=== PATIENT | female | born 1980 | race Caucasian/White ===

== ENCOUNTER 2017-04-05 18:29 | Emergency (ER) | payer OTHER ==
[~2017-04-05 18:29] MED LIST: ALBUTEROL17 GM INH; CHOLESTEROL MED; CIPRO PO; COLESTID1 GM; DICLOFENAC PO; DIFLUCAN PO; EC-NAPROSYN500 MG PO; EMVERM100 MG PO; FIORICET1 TAB PO; HYDROCODON-ACE1 EAC1 PO; HYDROCODONE-APA1 T56 PO; LIDOCAINE VISCOU1 ML TOP; LORTAB 5-325 M1 EACH PO; NAPROXEN PO; PRILOSEC20 M1 PO; QNASL8.7 GM; SINGULAIR PO; VALTREX500 MG PO; VICODIN 5/1 TAB 5/50 PO; ZANTAC150 M1; ZOFRAN ODT4 MG SL; ZOFRAN PO; ZOMIG2.5 MG PO; ZOMIG5 MG PO; ZYRTEC10 M4 PO
[2017-04-05] MEDS ORDERED: MUSCLE RELAXER (18:37)
[2017-04-05] MEDS ORDERED: VALTREX500 MG PO (18:38)
[2017-04-05] MEDS ORDERED: ZYRTEC10 M2 PO (18:38)
== END 2017-04-05 19:53 | disposition home or self-care (01) ==
LOC: SED 18:29
DX: M54.12 Radiculopathy, cervical region (principal); Z79.2 Long term (current) use of antibiotics; Z88.5 Allergy status to narcotic agent; Z88.8 Allergy status to other drugs, medicaments and biological substances
CPT/HCPCS: 99282

== ENCOUNTER → 2017-04-16 | Outpatient (CLI) | payer OTHER ==
[~2017-04-16] MED LIST changes: +HYDROCODON-ACE1 EAC7; +IBUPROFEN800 MG; +MUSCLE RELAXER; +ROBAXIN500 MG PO; +ZYRTEC10 M2 PO
--- NOTE | ~2017-04-16 | MR32 ---
[facility] A Service of [facility] RADIOLOGY TEXT RESULTS PATIENT: ZAK EMERY LOCATION: [facility] : [birth year] UNIT #: [id number] AGE: [address]: Jeff Prescott MD SEX: F ORDER DR: [id number] [address] [address] [id number] O MR#: [id number] Acc #: [id number] NAME: ZAK EMERY : 1980 SEX: F STUDY DATE/TIME: 04/16/2017 11:48 UNIT: [facility] ROOM: STUDY DESCRIPTION: MR Cervical Wo Contrast Attending Physician: Jeff Prescott M.D. Referring Physician: Jeff Prescott M.D. Ordering Physician: Jeff Prescott M.D. Primary Care Physician: Alanis Young M.D. MRI CENTER REPORT This report is preliminary unless electronic signature is present. EXAM Cervical MRI HISTORY Worsening neck pain with numbness and tingling in the left fingers and pain radiating to the right upper extremity for the past 2 months. TECHNIQUE Multiplanar imaging of the cervical spine was performed with short and long TR. FINDINGS Alignment is satisfactory. There is mild concentric disc bulging at C5-6. The discs at the other levels are unremarkable. The canal and foramina are widely patent throughout the cervical spine. No evidence of disc herniation. No evidence of exiting nerve root compression. The cord itself is normal in size and signal. There is no evidence of marrow edema. IMPRESSION Minimal midline disc bulging at C5-6. Otherwise negative. Dictated by... Rohan Muller M.D. THIS IS AN ELECTRONICALLY VERIFIED REPORT Rohan Muller M.D. at 04/21/2017 5:48 AM MYLENE/citlaly TD: 04/16/2017 19:44 JOB #: [id number] [facility] A Service of [facility] RADIOLOGY TEXT RESULTS PATIENT: ZAK EMERY LOCATION: [facility] : [birth year] UNIT #: [id number] AGE: [address]: Jeff Prescott MD SEX: F ORDER DR: MRI CENTER REPORT Page 1 of 1
== END | disposition home or self-care (01) ==
LOC: SMRI 11:24
DX: M54.2 Cervicalgia (principal); M54.10 Radiculopathy, site unspecified; R20.2 Paresthesia of skin; M50.822 Other cervical disc disorders at C5-C6 level
CPT/HCPCS: 72141

== ENCOUNTER 2017-05-08 19:03 | Emergency (ER) | payer OTHER ==
--- NOTE | ~2017-05-08 | EKG ---
PATIENT: ZAK EMERY UNIT #: [id number] Ventricular Rate: 58 BPM Atrial Rate: 58 BPM P-R Interval: 182 ms QRS Duration: 74 ms Q-T Interval: 400 ms QTC Calculation(Bezet): 392 ms P [place]: 53 degrees Calculated R [place]: 79 degrees Calculated T [place]: 48 degrees Diagnosis Line: Sinus bradycardia Diagnosis Line: Otherwise normal ECG Diagnosis Line: Diagnosis Line: Confirmed by RUMA HARRINGTON MD ([id number]) on Diagnosis Line: 05/14/2017 9:00:40 AM INTERPRETING MD: JUANY GARCIA
--- NOTE | ~2017-05-08 | CT71 ---
[facility] A Service [facility] RADIOLOGY TEXT RESULTS PATIENT: ZAK EMERY LOCATION: [facility] : [birth year] UNIT #: [id number] AGE: [address]: Elías Strong MD SEX: F ORDER DR: [id number] [address] [address] [id number] E MR#: [id number] Acc #: [id number] NAME: ZAK EMERY. : 1980 SEX: F STUDY DATE/TIME: 05/08/2017 22:23 UNIT: [facility] ROOM: STUDY DESCRIPTION: CT Head Wo Contrast Attending Physician: Elías Strong M.D. Ordering Physician: Elías Strong M.D. Primary Care Physician: Alanis Young M.D. MEDICAL IMAGING REPORT This report is preliminary unless electronic signature is present. EXAM CT scan head without contrast. INDICATION Dizziness and confusion for 1 week also with blurry vision. COMPARISON 04/11/2015. This CT exam was performed with one or more of the following radiation dose reduction techniques: automatic exposure control, adjustment of mA and/or kV according to patient size, and iterative reconstruction. FINDINGS Axial noncontrast images were obtained from the skull base to the vertex. Ventricular size and configuration are normal. There is no evidence of acute infarct or hemorrhage. There are no extraaxial fluid collections. No mass lesion or mass effect is seen. There are no skull fractures. IMPRESSION Normal noncontrast head CT. Dictated by... Saad Pineda M.D. THIS IS AN ELECTRONICALLY VERIFIED REPORT Saad Pineda M.D. at 05/10/2017 5:01 AM SANTOS/reginald TD: 05/09/2017 22:34 [facility] A Service [facility] RADIOLOGY TEXT RESULTS PATIENT: ZAK EMERY LOCATION: [facility] : [birth year] UNIT #: [id number] AGE: [address]: Elías Strong MD SEX: F ORDER DR: JOB #: [id number] MEDICAL IMAGING REPORT Page 1 of 1
[~2017-05-08 19:03] MED LIST changes: -HYDROCODON-ACE1 EAC7; -IBUPROFEN800 MG; -ROBAXIN500 MG PO
[2017-05-08] MEDS ORDERED: ROBAXIN500 MG PO (19:15)
[2017-05-08] MEDS ORDERED: HYDROCODON-ACE1 EAC7 (19:16)
[2017-05-08] MEDS ORDERED: IBUPROFEN800 MG (19:16)
[2017-05-08 20:03] LABS: URINE SOURCE CLEAN CATCH
[2017-05-08 20:09] LABS: URINE APPEARANCE CLEAR; URINE BILIRUBIN NEG (NEG); URINE BLOOD 1+ (NEG); URINE COLOR YELLOW; URINE GLUCOSE NEG (NORM); URINE KETONE NEG (NEG); URINE LEUKOCYTE ESTERASE TRACE (NEG); URINE NITRATE NEG (NEG); URINE PROTEIN NEG (NEG)
[2017-05-08 20:15] LABS: MICRO INDICATED? YES
[2017-05-08 20:16] LABS: CULTURE INDICATED? NO; URINE BACTERIA NEG (NEG); URINE MUCUS PRESENT; URINE SQUAMOUS EPITHELIAL CELL OCCAS /[HPF]; URINE TRANSITIONAL EPI CELLS FEW /[HPF]
[2017-05-08 21:28] LABS: BASOPHIL# 0.1 X10e3 (0-0.3); DIFF IND NO; EOSINOPHIL# 0.1 X10e3 (0-0.7); HEMATOCRIT 44.7 % (35.0-45.0); HEMOGLOBIN 15.3 gm/dL (12.0-16.0); LYMPHOCYTE# 2.2 X10e3 (1.0-3.5); LYMPHOCYTE% 32.1 % (17.0-45.0); MEAN CELL VOLUME 84.5 FL (83-96); MEAN CORPUSCULAR HEMOGLOBIN 28.9 PG (28-34); MEAN CORPUSCULAR HGB CONC 34.2 g/dL (30-36); MEAN PLATELET VOLUME 7.1 FL (6.5-11.5); MONOCYTE# 0.5 X10e3 (0-1.0); MONOCYTE% 7.8 % (3.0-12.0); NEUTROPHIL# 3.9 X10e3 (1.5-7.1); NEUTROPHIL% 57.1 % (40-75); PLATELET COUNT 237 X10e3 (140-420); RED BLOOD COUNT 5.29 X10e (3.90-5.30); RED CELL DISTRIBUTION WIDTH 13.2 % (11.0-15.5); WHITE BLOOD COUNT 6.9 X10e3 (4.0-10.5)
[2017-05-08 21:48] LABS: ALBUMIN SERUM 4.4 g/dL (3.5-5.0); BILIRUBIN, DIRECT 0.1 mg/dL (0.0-0.2); BILIRUBIN,TOTAL 1.1 mg/dL (0.2-2.0); BUN/CREATININE RATIO 28.75; CALCIUM SERUM 9.1 mg/dL (8.4-10.2); CREATININE SERUM 0.8 mg/dL (0.6-1.4); GLOM FILT RATE Estimated 94.9 mL/min (>60); POTASSIUM 3.9 mmol/L (3.5-5.1); PROTEIN TOTAL SERUM 7.3 g/dL (6.0-8.3)
== END 2017-05-08 23:22 | disposition home or self-care (01) ==
LOC: SED 19:03
PROVIDERS: Emergency Medicine
DX: H81.10 Benign paroxysmal vertigo, unspecified ear (principal); R11.2 Nausea with vomiting, unspecified; Z79.899 Other long term (current) drug therapy; Z88.5 Allergy status to narcotic agent; Z88.8 Allergy status to other drugs, medicaments and biological substances
CPT/HCPCS: 36415; 70450; 80048; 80076; 81003; 84703; 85025; 86617; 86618; 93005; 99284; J1885; J2405